=== PATIENT | male | born 1975 | race Caucasian/White ===

== ENCOUNTER 2016-09-05 04:14 | Emergency (ER) | payer MEDICAID ==
--- NOTE | 2016-09-05 04:29 | EDPHY ---
H & P Source: Patient, Police Exam Limitations: No limitations - Personal History Tetanus Vaccine Date: 05/21/14 - Medical/Surgical History Hx Asthma: No Hx Chronic Respiratory Disease: No Hx Diabetes: No Hx Cardiac Disease: No Hx Renal Disease: No Hx Cirrhosis: No Hx Alcoholism: Yes Hx HIV/AIDS: No Hx Splenectomy or Spleen Trauma: No Other PMH: depression, anxiety, bipolar, PTSD, spine fracture. etoh socially, schizoaffective disorder, GERD - Family History Significant Family History: No pertinent family hx - Social History Smoking Status: Heavy smoker Alcohol Use: Sober Drug Use: None Time Seen by Provider: 09/05/16 04:17 HPI/ROS: CHIEF COMPLAINT: Psychosis HISTORY OF PRESENT ILLNESS: Patient is a 41-year-old man who is brought to the emergency department from senior care for hallucinations and psychosis. He has a history of bipolar with psychotic features as well as PTSD and panic disorder. Also alcohol and polysubstance abuse. The patient states that he went to senior care today and was hallucinating and seeing forms. He is supposed to be on lithium and Seroquel but states he has not been taking them. He denies any recent illness or injury. REVIEW OF SYSTEMS: Constitutional: denies: chills, fever, recent illness, recent injury EENTM: denies: blurred vision, double vision, nose congestion Respiratory: denies: cough, shortness of breath Cardiac: denies: chest pain, irregular heart rate, lightheadedness, palpitations Gastrointestinal/Abdominal: denies: abdominal pain, diarrhea, nausea, vomiting, blood streaked stools Genitourinary: denies: dysuria, frequency, hematuria, pain Musculoskeletal: denies: joint pain, muscle pain Skin: denies: lesions, rash, jaundice, bruising Neurological: denies: headache, numbness, paresthesia, tingling, dizziness, weakness Hematologic/Lymphatic: denies: blood clots, easy bleeding, easy bruising Immunologic/allergic: denies: HIV/AIDS, transplant EXAM: GENERAL: Thin, disheveled HEAD: Atraumatic, normocephalic. EYES: Pupils equal round and reactive to light, extraocular movements intact, sclera anicteric, conjunctiva are normal. ENT: TMs normal, nose burned with deviation of nares, oropharynx clear without exudates. Moist mucous membranes. NECK: Normal range of motion, supple without lymphadenopathy or JVD. LUNGS: Breath sounds clear to auscultation bilaterally and equal. No wheezes rales or rhonchi. HEART: Regular rate and rhythm without murmurs, rubs or gallops. ABDOMEN: Soft, nontender, normoactive bowel sounds. No guarding, no rebound. No masses appreciated. BACK: No CVA tenderness, no spinal tenderness, step-offs or deformities EXTREMITIES: Normal range of motion, no pitting or edema. No clubbing or cyanosis. NEUROLOGICAL: Cranial nerves II through XII grossly intact. Normal speech, normal gait. 5/5 strength, normal movement in all extremities, normal sensation PSYCH: Answers questions appropriately. Does appear to be responding to internal stimuli. SKIN: Warm, dry, normal turgor, no visible rashes or lesions. (Yuan Loomis) Constitutional: Initial Vital Signs Temperature (C) 36.7 C 09/05/16 04:15 Heart Rate 105 H 09/05/16 04:15 Respiratory Rate 16 09/05/16 04:15 Blood Pressure 113/84 H 09/05/16 04:15 O2 Sat (%) 93 09/05/16 04:15 O2 Delivery Mode Room Air Allergies/Adverse Reactions: No Known Allergies Allergy (Verified 09/05/16 04:42) Home Medications: Medication Instructions Recorded Nicholson Carbonate [Nicholson 300 mg PO BID 14 Days 05/26/14 Carbonate Cap 300 mg (*)] QUEtiapine FUMARATE [Seroquel 200 200 mg PO HS 14 Days 05/26/14 mg (*)] Ibuprofen [Motrin (*)] 800 mg PO Q6-8PRN #30 tab 12/22/15 Medical Decision Making ED Course/Re-evaluation: 6:55 a.m.: Assumed care of this patient from Dr. Yuan Loomis. Psychiatric evaluation has just been completed. This patient is felt to be appropriate for inpatient treatment. 1200: Patient accepted at [facility] by Dr. Clayton. EMTALA signed. (Isabella Velasquez) 6:45 a.m. patient has been evaluated by Mental Health. They plan to admit to an inpatient psychiatric facility. 7:00 a.m. care transferred to Dr. Isabella Velasquez at shift change. We are awaiting psychiatric evaluation. (Yuan Loomis) Differential Diagnosis: Partial list of the Differential diagnosis considered include but were not limited to; bipolar, schizophrenia, substance abuse and although unlikely based on the history and physical exam, I also considered head injury, infection. (Yuan Loomis) - Data Points Laboratory Results: Laboratory Results 09/05/16 04:35 09/05/16 04:35 Medications Given: Discontinued Medications Quetiapine Fumarate (Seroquel) 200 mg PO EDNOW ONE Stop: 09/05/16 05:21 Last Admin: 09/05/16 05:20 Dose: 200 mg Departure - Departure Disposition: Other Psych, Not [place] Clinical Impression: Bipolar affective disorder Qualifiers: Active/Remission status: currently active Current bipolar episode type: manic Current episode severity: severe Psychotic features: with psychotic features Qualified Code(s): F31.2 - Bipolar disorder, current episode manic severe with psychotic features Condition: Fair Referrals: Patient,NotPresent [Unknown] - As per Instructions
[2016-09-05 04:46] LABS: % IMMATURE GRANULYOCYTES 0.4 % (0.0-1.1); ABSOLUTE IMMATURE GRANULOCYTES 0.05 10^3/uL (0.00-0.10); ADD DIFF? NO; ADD MORPH? NO; ADD SCAN? NO; ATYPICAL LYMPHOCYTE FLAG 0 (0-99); FRAGMENT RBC FLAG 0 (0-99); HEMATOCRIT 45.3 % (40.0-51.0); LEFT SHIFT FLG 0 (0-99); LIPEMIA HEMOLYSIS FLAG 90 (0-99); MEAN CELL HEMOGLOBIN 32.3 pg (27.9-34.1); MEAN CELL HEMOGLOBIN CONCENTR. 35.3 g/dL (32.4-36.7); MEAN CELL VOLUME 91.3 fL (81.5-99.8); MEAN PLATELET VOLUME 9.3 fL (8.7-11.7); PLATELET CLUMPS FLAG 20 (0-99); PLATELET COUNT 329 10^3/uL (150-400); RED BLOOD CELL COUNT 4.96 10^6/uL (4.40-6.38); RED CELL DISTRIBUTION WIDTH 12.6 % (11.5-15.2)
[2016-09-05 04:57] LABS: ANION GAP 17 mEq/L (8-16); CALCIUM 9.1 mg/dL (8.5-10.4); CARBON DIOXIDE 21 mEq/l (22-31); CHLORIDE 107 mEq/L (97-110); ETHANOL SERUM 40 mg/dL (0-10); GLOMERULAR FILTRATION RATE > 60; GLUCOSE 95 mg/dL (70-100); SODIUM 145 mEq/L (134-144)
[2016-09-05 04:59] LABS: LITHIUM < 0.2 mEq/L (0.6-1.2)
[2016-09-05] MEDS ORDERED: QUEtiapine FUMARATE 200 MG TAB ONE (05:17)
[2016-09-05] MEDS ORDERED: QUEtiapine FUMARATE 50 MG TAB PO ONE (05:20)
[2016-09-05 07:42] VITALS: TEMP 98.4; O2SAT 95
[2016-09-05 14:37] VITALS: BP 130/77; PULSE 100; RESP 18
== END 2016-09-05 14:39 ==
DX: F31.2 Bipolar disorder, current episode manic severe with psychotic features (principal); F17.200 Nicotine dependence, unspecified, uncomplicated
CPT/HCPCS: 80305; G0480

== ENCOUNTER 2018-03-10 09:31 | Emergency (ER) | payer MEDICAID ==
--- NOTE | 2018-03-10 10:19 | EDPHY ---
H & P Stated Complaint: R rib pain Source: Patient Exam Limitations: No limitations - Personal History Current Tetanus/Diphtheria Vaccine: Yes Current Tetanus Diphtheria and Acellular Pertussis (TDAP): Yes Tetanus Vaccine Date: 05/21/14 - Medical/Surgical History Hx Asthma: No Hx Chronic Respiratory Disease: No Hx Diabetes: No Hx Cardiac Disease: No Hx Renal Disease: No Hx Cirrhosis: No Hx Alcoholism: Yes Hx HIV/AIDS: No Hx Splenectomy or Spleen Trauma: No Other PMH: depression, anxiety, bipolar, PTSD, spine fracture. etoh socially, schizoaffective disorder, GERD, dog bite on face - Social History Smoking Status: Heavy smoker Time Seen by Provider: 03/10/18 10:18 HPI/ROS: HPI: This is a 42-year-old male who presents with Chief Complaint: Right rib pain Location: Right posterior rib Quality: Pain Duration: 1 week Signs and Symptoms: no shortness of breath at rest, no shortness of breath on exertion, no cough, no chest pain, no palpitations, no lower extremity edema, no wheezing, no orthopnea, no paroxysmal nocturnal dyspnea, no fever, no injury/ trauma, no hemoptysis, no carpal pedal spasms Timing: Acute, constant Severity: [id number] Context: Patient presents with ominous onset of right posterior lower rib pain that is nonradiating in nature for the last week. He reports that there has been no trauma or injury. He denies any fever, cough, shortness of breath, chest pain. Pain is worsened with touching the area. He is a heavy smoker. Patient has no history of kidney stones and denies any urinary symptoms. No recent long distance travel. Modifying Factors: None Comment: ROS: A comprehensive 10 system review of systems is otherwise negative aside from elements mentioned in the history of present illness. MEDICAL/SURGICAL/SOCIAL HISTORY: Medical history: depression, anxiety, bipolar, PTSD, spine fracture etoh socially, schizoaffective disorder, GERD, dog bite on face Surgical history: Denies Social history: Heavy smoker CONSTITUTIONAL: Nontoxic appearing middle-aged white male walking around the room, awake and alert, no obvious distress HEENT: Atraumatic and normocephalic, PERRL, EOMI. Nares patent; no rhinorrhea; no nasal mucosal edema. Tympanic membranes clear. Oropharynx clear, no exudate and moist pink mucosa. Airway patent. No lymphadenopathy. No meningismus. Cardiovascular: Normal S1/S2, regular rate, regular rhythm, without murmur rub or gallop. PULMONARY/CHEST: Symmetrical and right posterior lower rib reproducible tenderness. No ecchymosis, no crepitus. Clear to auscultation bilaterally. Good air movement. No accessory muscle usage. ABDOMEN: Soft, nondistended, nontender, no rebound, no guarding, no peritoneal signs, no masses or organomegaly. CVAT. EXTREMITIES: 2/2 pulses, strength 5/5, no deformities, no clubbing, no cyanosis or edema. Negative Homans sign. No palpable cords. NEUROLOGICAL: no focal neuro deficits. GCS 15. SKIN: Warm and dry, no erythema. no rash. Good capillary refill. (Nella Cantu) Constitutional: Initial Vital Signs Temperature (C) 36.8 C 03/10/18 09:54 Heart Rate 110 H 03/10/18 09:54 Respiratory Rate 16 03/10/18 09:54 Blood Pressure 129/77 H 03/10/18 09:54 O2 Sat (%) 96 03/10/18 09:54 O2 Delivery Mode Room Air Allergies/Adverse Reactions: No Known Allergies Allergy (Verified 03/10/18 09:53) Home Medications: Medication Instructions Recorded QUEtiapine FUMARATE [Seroquel 200 200 mg PO HS 14 Days tab 05/26/14 mg (*)] Ibuprofen [Motrin (*)] 800 mg PO Q6-8PRN #30 tab 12/22/15 Lidocaine [Lidoderm] 1 each TP Q12 PRN #6 adh..patch 03/10/18 Risperdal 03/10/18 Medical Decision Making - Diagnostics Imaging Results: Imaging Impressions Ribs w/Chest X-Ray 03/10/18 10:25 Impression: Normal. No rib fracture or pneumothorax. ED Course/Re-evaluation: Vital signs reviewed and show mild tachycardia upon arrival. No hypoxia, respiratory distress. Right rib x-ray and chest x-ray ordered, urinalysis ordered Lidoderm patch placed Wells criteria is low for pulmonary embolism. Patient is reluctant to have laboratory studies drawn at this time. Will wait on this. Rib and chest x-ray my read show no signs of fracture, pneumothorax. Urinalysis shows no signs of infection, no hematuria to indicate kidney stone. Tachycardia resolved at discharge. Reports adequate pain relief. Ambulatory without any deficits. This patient was seen under the supervision of my secondary supervising physician. I evaluated care for this patient independently. Discussed this patient with Dr. Tiwari. (Nella Cantu) I did not see this patient while he was in the emergency department. However his care is discussed with the PA while the patient is in the department. I agree with treatment plan and management (Scott Tiwari) Differential Diagnosis: Differential diagnosis includes but is not limited to pulmonary embolism, kidney stone, costochondritis, pneumothorax, pneumonia. (Nella Cantu) - Data Points Laboratory Results: 03/10/18 12:05 Urine Color YELLOW Urine Appearance HAZY Urine pH 7.0 (5.0-7.5) Ur Specific [place] 1.018 (1.002-1.030) Urine Protein NEGATIVE (NEGATIVE) Urine Ketones NEGATIVE (NEGATIVE) Urine Blood NEGATIVE (NEGATIVE) Urine Nitrate NEGATIVE (NEGATIVE) Urine Bilirubin NEGATIVE (NEGATIVE) Urine Urobilinogen NEGATIVE EU EU (0.2-1.0) Ur Leukocyte Esterase NEGATIVE (NEGATIVE) Urine Glucose NEGATIVE (NEGATIVE) Medications Given: Discontinued Medications Miscellaneous Medication (Icy Hot Lidocaine/Menthol 4%/1% Patch) 1 patch TD EDNOW ONE Stop: 03/10/18 10:26 Last Admin: 03/10/18 10:45 Dose: 1 patch Departure - Departure Disposition: Home, Routine, Self-Care Clinical Impression: Rib pain on right side Condition: Good Instructions: Costochondritis (ED) Additional Instructions: Take Tylenol 650 mg every 4 hours and/or Ibuprofen 600 mg every 8 hours with food as needed for pain. Apply Lidoderm patch every 12 hr as needed for right lower rib pain. Apply moist heat for 30 minutes at a time; 2-3 times per day for the next 1-2 days. Follow up with PCP in 5-7 days if symptoms persist at which time they will evaluate and recommend with you if conservative management versus further workup is indicated. Referrals: [facility],. [Clinic] - As per Instructions Prescriptions: Lidocaine [Lidoderm] 1 each TP Q12 PRN #6 adh..patch PRN Reason: Pain, Moderate
[2018-03-10] MEDS ORDERED: LIDOCAINE 4%/MENTHOL 1% PATCH TD ONE (10:25)
[2018-03-10 12:38] VITALS: BP 124/89
[2018-03-10] MEDS ORDERED: PATCH REMOVAL 1 EA PATCH TD SCH (21:00)
== END 2018-03-10 13:08 | disposition home or self-care (01) ==
LOC: SUPCPDRO 09:31
DX: R07.81 Pleurodynia (principal); F17.200 Nicotine dependence, unspecified, uncomplicated